=== PATIENT | male | born 1960 | race American Indian/Alaskan Native ===

== ENCOUNTER 2022-03-04 16:56 | Emergency (ER) | payer SELFPAY ==
--- NOTE | 2022-03-04 18:15 | XRay Report ---
CHEST 1 VIEW INDICATION: Chest Pain. COMPARISON: None FINDINGS: SUPPORT DEVICES: None. HEART: Within normal limits. LUNGS/PLEURA: No acute air space or interstitial disease. ADDITIONAL FINDINGS: None. IMPRESSION: 1. No acute findings. Signer Name: Ryan Humphreys MD Signed: 03/04/2022 6:11 PM Workstation Name: [id number]
[2022-03-04 18:32] VITALS: BP 127/83
[2022-03-04 18:32] LABS: Basophils # (Auto) 0.1 K/mm3 (0.0-0.1); Basophils % (Auto) 1.2 % (0.0-1.8); Eosinophils # (Auto) 0.4 K/mm3 (0.0-0.4); Eosinophils % (Auto) 5.1 % (0.0-4.3); Hematocrit 48.6 % (35.5-45.6); Hemoglobin 16.1 gm/dl (11.8-15.2); Lymphocytes # (Auto) 2.5 K/mm3 (1.2-5.4); Lymphocytes % (Auto) 35.1 % (13.4-35.0); Mean Corpuscular HGB Conc 33 % (32-34); Mean Corpuscular Volume 92 fl (84-94); Monocytes # (Auto) 0.7 K/mm3 (0.0-0.8); Monocytes % (Auto) 9.1 % (0.0-7.3); Platelet Count 210 K/mm3 (140-440); Red Blood Count 5.28 M/mm3 (3.65-5.03); Red Cell Distribution Width 15.2 % (13.2-15.2)
[2022-03-04 19:03] LABS: Alanine Aminotransferase 15 units/L (7-56); BUN/Creatinine Ratio 13; Blood Urea Nitrogen 14 mg/dL (9-20); Calcium 9.1 mg/dL (8.4-10.2); Hemolysis Index 14
--- NOTE | 2022-03-04 19:26 | Emergency Department Report ---
ED Chest Pain HPI - General Chief Complaint: Chest Pain Stated Complaint: CHEST PAIN Time Seen by Provider: 03/04/22 18:56 Source: EMS Mode of arrival: Stretcher Limitations: No Limitations - History of Present Illness Initial Comments: 62-year-old male with no history of CAD who now presents with chest pain that started yesterday with improvement after taking nitro and aspirin. Patient reports smoking about a pack a day for the last 20 years. Patient denies any COPD diagnosis. No fever or chills reported. Patient also mention chronic dry cough. No other modifying or associated factors reported. MD Complaint: chest pain Severity scale (0 -10): 6 - Related Data Allergies Allergy/AdvReac Type Severity Reaction Status Date / Time No Known Allergies Allergy Unverified 03/04/22 17:29 Heart Score - HEART Score History: Moderately suspicious EKG: Non-specific Age: 45-65 Risk factors: 1-2 risk factors Troponin: < normal limit HEART Score: 4 - EKG Read Time Time EKG Completed: 05:10 EKG Read Time: 05:30 - Critical Actions Critical Actions: 0-3 pts:0.9-1.7%risk of adverse cardiac event.Candidate for discharge ED Review of Systems ROS: Stated complaint: CHEST PAIN Other details as noted in HPI Comment: All other systems reviewed and negative Respiratory: shortness of breath Cardiovascular: chest pain ED Past Medical Hx - Past Medical History Previous Medical History?: Yes Hx Hypertension: Yes ED Physical Exam - General Limitations: No Limitations General appearance: alert, in no apparent distress - Head Head exam: Present: normal inspection - Eye Eye exam: Present: normal appearance Pupils: Present: normal accommodation - ENT ENT exam: Present: normal exam, normal orophraynx - Neck Neck exam: Present: normal inspection, full ROM. Absent: tenderness - Respiratory Respiratory exam: Present: normal lung sounds bilaterally. Absent: respiratory distress, wheezes, chest wall tenderness - Cardiovascular Cardiovascular Exam: Present: regular rate, normal rhythm, normal heart sounds - GI/Abdominal GI/Abdominal exam: Present: soft, normal bowel sounds. Absent: tenderness - Extremities Exam Extremities exam: Present: normal inspection, full ROM, normal capillary refill - Back Exam Back exam: Present: normal inspection, full ROM. Absent: tenderness - Neurological Exam Neurological exam: Present: alert. Absent: altered - Psychiatric Psychiatric exam: Present: normal affect, normal mood - Skin Skin exam: Present: warm, intact. Absent: rash ED Course Vital Signs 03/04/22 03/04/22 03/04/22 17:19 17:26 17:29 Temperature 98.1 F Pulse Rate 82 78 Respiratory 18 18 18 Rate Blood Pressure Blood Pressure 124/90 [Right] O2 Sat by Pulse 97 97 97 Oximetry 03/04/22 03/04/22 03/04/22 17:30 17:31 17:46 Temperature Pulse Rate 82 Respiratory Rate Blood Pressure 120/88 120/88 Blood Pressure [Right] O2 Sat by Pulse 96 97 Oximetry 03/04/22 03/04/22 18:00 18:16 Temperature Pulse Rate Respiratory Rate Blood Pressure 127/83 127/83 Blood Pressure [Right] O2 Sat by Pulse 97 96 Oximetry - Reevaluation(s) Reevaluation #1: 03/04/22 19:26 Here with chest pain and noted with unremarkable exam--we will go ahead and order cardiopulmonary work-up to rule out any DC FABIEN score - Fabien Score Age > 65: (0) No Aspirin use within the Past 7 Days: (1) Yes 3 or more CAD Risk Factors: (0) No 2 or more Angina events in past 24 hrs: (0) No Known CAD with more than 50% Stenosis: (0) No Elevated Cardiac Markers: (0) No ST Deviation Greater than 0.5mm: (0) No FABIEN Score: 1 ED Medical Decision Making - Lab Data Result diagrams: 03/04/22 18:08 03/04/22 18:08 - EKG Data EKG shows normal: sinus rhythm Rate: normal - EKG Data Interpretation: no acute changes - Medical Decision Making Here with chest pain that started 24 hours ago and noted with unremarkable exam and cardiac work-up including normal EKG and initial troponin which make his unlikely cardiac considering that this has been going on for the last 24 hours. Patient is requesting for food at this point with no chest pain. This patient chest pain and shortness of breath is likely as a result of COPD from extensive smoking history. Patient reassured and will be discharged to follow-up with his primary doctor. And to cut back on smoking with close follow-up and warning to return to emergency room if symptoms worsen Critical care attestation.: If time is entered above; I have spent that time in minutes in the direct care of this critically ill patient, excluding procedure time. ED Disposition Clinical Impression: Chest pain, non-cardiac Disposition: 01 HOME / SELF CARE / HOMELESS Is pt being admited?: No Does the pt Need Aspirin: No Condition: Stable Instructions: Nonspecific Chest Pain, Adult, Nonspecific Chest Pain, Adult, [id number] Additional Instructions: Please cut back or quit smoking to help your overall health Increase your daily fluid to help your hydration Please call and follow-up with your primary doctor in the next 3 to 5 days for progress Please do not hesitate to call or return to emergency room if your symptoms worsen Referrals: PRIMARY CARE, [Primary Care Provider] - 3-5 Days Time of Disposition: 19:30
--- NOTE | 2022-03-05 12:54 | Electrocardiograph Report ---
[facility] Test Date: 2022-03-04 Test Time: 17:10:33 Pat Name: AUTUMN LIGHT Department: Room: Gender: M Usability Specialist: isabell : 1960 Requested By: AUGUSTINA CEDENO Order Number: [id number] Reading MD: Aaron Archuleta Measurements Intervals Gideon Rate: 80 P: 48 CT: 150 QRS: 65 QRSD: 88 T: 241 QT: 361 QTc: 416 Interpretive Statements Sinus rhythm Abnormal T, consider ischemia, diffuse leads,consider LVH. No previous ECG available for comparison Electronically Signed On 03-05-2022 12:53:52 EDT by Aaron Archuleta
== END 2022-03-04 20:00 | disposition home or self-care (01) ==
LOC: ED 16:56
DX: R07.89 Other chest pain (principal); I10 Essential (primary) hypertension; Z79.899 Other long term (current) drug therapy
CPT/HCPCS: 36415; 71045; 80053; 84484; 85025; 93005; 99284